=== PATIENT | female | born 1950 | race Caucasian/White ===

== ENCOUNTER 2017-11-18 12:34 | Outpatient (CLI) | payer MEDICARE, BC ==
[2017-11-18 15:45] LABS: Bilirubin Negative (Negative); Blood, Urine Negative (Negative); Clarity CLEAR (Clear); Glucose, Urine (Dipstick) >=1000 mg/dL (Negative); Leukocyte Negative (Negative); Nitrite Negative (Negative); Protein, Urine (Dipstick) Negative (Neg-Trace); Specific Gravity, Urine 1.022 (1.002-1.036); Urobilinogen 0.2 mg/dL (0.2-1.0)
[2017-11-18 15:51] LABS: Bacteria/HPF None Seen HPF (None Seen); Hyaline Casts/LPF 0-3 HYALINE CAST LPF (0-3 Hyaline); RBC/HPF 0-3 HPF (0-3); Squamous Epithelial None Seen HPF (0-3); WBC/HPF None Seen HPF (0-3)
== END 2017-11-18 12:35 | disposition home or self-care (01) ==
LOC: LABBT 12:34
PROVIDERS: ATTEND Orthopaedic Surgery
DX: Z01.818 Encounter for other preprocedural examination (principal); M17.12 Unilateral primary osteoarthritis, left knee
CPT/HCPCS: 81001; 87081; 93005; 93010

== ENCOUNTER 2017-11-25 13:54 | Outpatient (CLI) | payer MEDICARE, BC ==
[2017-11-25 14:19] LABS: #Eosinphils 0.2 thou/uL (0.0-0.7); #Lymphocytes 1.6 thou/uL (1.20-3.40); #Monocytes 0.5 thou/uL (0.11-0.59); #Neutrophils 5.4 thou/uL (1.40-6.50); %Basophils 0.6 % (0.0-1.0); %Eosinophils 2.9 % (0.0-10.0); %Lymphocytes 20.2 % (21.0-51.0); %Monocytes 6.8 % (0.0-10.0); %Neutrophils 69.5 % (42.0-75.0); Hemoglobin 14.4 g/dL (12.0-16.0); Mean Corpuscular HGB CONC 34.6 g/dL (32.0-36.0); Mean Corpuscular Hemoglobin 31.7 pg (27.0-31.0); Mean Corpuscular Volume 91.4 fL (78.0-98.0); Mean Platelet Volume 7.8 fL (7.4-10.4); Platelet Count 278 thou/uL (130-400); RBC Distribution Width 12.4 % (11.5-14.5); Red Blood Cell (RBC) Count 4.55 mill/uL (4.20-5.40); White Blood Cell (WBC) Count 7.7 thou/uL (4.8-10.8)
[2017-11-25 14:25] LABS: INR-International Normal Ratio 0.9; Prothrombin Time 12.4 SEC (12.0-14.7)
[2017-11-25 14:40] LABS: Anion Gap 14 mmol/L (10-20); BUN (Urea Nitrogen) 19 mg/dL (9.8-20.1); Calc. Creatinine Clearance 0 mL/min (70-130); Calcium 9.7 mg/dL (7.8-10.44); Carbon Dioxide 23 mmol/L (23-31); Chloride 104 mmol/L (98-107); Estimated GFR-MDRD 67; Glucose 161 mg/dL (80-115); Potassium 3.8 mmol/L (3.5-5.1); Sodium 137 mmol/L (136-145)
== END 2017-11-25 13:55 | disposition home or self-care (01) ==
LOC: LABBT 13:54
PROVIDERS: ATTEND Orthopaedic Surgery
DX: Z01.818 Encounter for other preprocedural examination (principal); M17.12 Unilateral primary osteoarthritis, left knee
CPT/HCPCS: 80048; 85025; 85610; 86850; 86900; 86901

== ENCOUNTER 2019-09-11 12:36 | Outpatient (CLI) | payer MEDICARE, BC ==
--- NOTE | 2019-09-11 14:07 | CT ---
RIGHT UPPER EXTREMITY CT SCAN WITHOUT IV CONTRAST: Date: 09/11/2019 HISTORY: Pain Dislocation FINDINGS: There is evidence for a large joint effusion and some fluid within the subacromial/subdeltoid bursa. There is an anterior subcoracoid dislocation with fairly extensive subchondral fractures of both the glenoid and humeral head with numerous displaced small bony fragments. There is severe muscle volume loss and fatty replacement of the supraspinatus muscle. AC joint arthrosis. IMPRESSION: 1. Anterior subcoracoid dislocation with some extensive subchondral fractures of both the humeral he ad and the glenoid, primarily inferiorly, resulting in the humeral head being essentially perched upo n the inferior glenoid. 2. Numerous displaced small fracture fragments resulting in numerous interarticular bodies. 3. Severe muscle volume loss of the supraspinatus muscle. 4. Fluid in the shoulder glenohumeral joint, as well as subacromial and subdeltoid bursal regions. POS: RRE
== END 2019-09-11 12:37 | disposition home or self-care (01) ==
LOC: SCSCT 12:36
PROVIDERS: ATTEND Orthopaedic Surgery
DX: S43.004A Unspecified dislocation of right shoulder joint, initial encounter (principal); M62.89 Other specified disorders of muscle

== ENCOUNTER 2019-09-19 06:39 | Outpatient (CLI) | payer MEDICARE, BC, OTHER ==
[2019-09-19 15:58] LABS: #Basophils 0.1 thou/uL (0.0-0.2); #Eosinphils 0.3 thou/uL (0.0-0.7); #Lymphocytes 1.7 thou/uL (1.20-3.40); #Monocytes 0.5 thou/uL (0.11-0.59); #Neutrophils 5.8 thou/uL (1.40-6.50); %Basophils 1.2 % (0.0-1.0); %Eosinophils 3.6 % (0.0-10.0); %Lymphocytes 19.7 % (21.0-51.0); %Monocytes 6.1 % (0.0-10.0); %Neutrophils 69.4 % (42.0-75.0); Hemoglobin 15.3 g/dL (12.0-16.0); Mean Corpuscular HGB CONC 33.2 g/dL (32.0-36.0); Mean Corpuscular Hemoglobin 30.8 pg (27.0-31.0); Mean Corpuscular Volume 92.8 fL (78.0-98.0); Mean Platelet Volume 9.3 fL (7.4-10.4); Platelet Count 285 thou/uL (130-400); RBC Distribution Width 12.3 % (11.5-14.5); Red Blood Cell (RBC) Count 4.95 mill/uL (4.20-5.40); White Blood Cell (WBC) Count 8.4 thou/uL (4.8-10.8)
[2019-09-19 16:03] LABS: INR-International Normal Ratio 0.9; Prothrombin Time 12.2 sec (12.0-14.7)
[2019-09-20 18:04] LABS: SARS-CoV-2 MS2 Positive; SARS-CoV-2 N Gene Negative; SARS-CoV-2 S Gene Negative; SARS-CoV-2 orf1ab Negative
== END 2019-09-19 06:40 | disposition home or self-care (01) ==
LOC: LABBT 06:39
PROVIDERS: ATTEND Orthopaedic Surgery
DX: Z01.818 Encounter for other preprocedural examination (principal); Z11.59 Encounter for screening for other viral diseases; S43.004A Unspecified dislocation of right shoulder joint, initial encounter
CPT/HCPCS: 85025; 85610; U0003; 87635

== ENCOUNTER 2019-09-19 13:30 | Inpatient (IN) | payer MEDICARE, BC, OTHER ==
[2019-09-18 11:44] VITALS: BMI 30.2
[2019-09-21] MEDS ORDERED: Midazolam HCl 2 mg/2 ml Vial ONE (06:32)
[2019-09-21] MEDS ORDERED: Fentanyl 100 MCG/2 ML VIAL ONE ×2 (06:32→09:44)
[2019-09-21] MEDS ORDERED: Tranexamic Acid 1,000 MG/10 ML VIAL ONE (06:39)
[2019-09-21] MEDS ORDERED: Sodium Chloride 0.9% 100 ML ONE (06:39)
[2019-09-21] MEDS ORDERED: Vancomycin 1.5 GRAM/300 ML BAG ONE (06:39)
[2019-09-21] MEDS ORDERED: HYDROcodone/Acetaminophen 7.5/325 mg Tablet PO PRN (06:56)
[2019-09-21] MEDS ORDERED: traMADol HCl 50 MG TAB PO PRN ×4 (06:56→07:43)
[2019-09-21] MEDS ORDERED: HYDROcodone/Acetaminophen 10/325 mg Tablet PO PRN ×2 (06:56)
[2019-09-21] MEDS ORDERED: PROPOFOL 20 ML ONE (07:00)
[2019-09-21] MEDS ORDERED: Dexamethasone 20 MG/5 ML VIAL ONE ×2 (07:00→11:06)
[2019-09-21] MEDS ORDERED: Rocuronium Bromide 50 MG/5 ML VIAL ONE (07:00)
[2019-09-21] MEDS ORDERED: Ondansetron PF 4 MG/2 ML Vial ONE ×2 (07:00→11:06)
[2019-09-21] MEDS ORDERED: Ketorolac Tromethamine 30 MG/ML VIAL ONE ×2 (07:00→11:06)
[2019-09-21] MEDS ORDERED: CEFAZOLIN 2 GM in Premix Bag 1 BAG IVPB SCH (07:00)
[2019-09-21] MEDS ORDERED: Promethazine HCl 25 MG/ML VIAL IM PRN (07:43)
[2019-09-21] MEDS ORDERED: Zolpidem Tartrate 5 MG TAB PO PRN (07:43)
[2019-09-21] MEDS ORDERED: Ondansetron PF 4 MG/2 ML Vial IVP PRN (07:43)
[2019-09-21] MEDS ORDERED: Ropivacaine 0.2% 550 ML 550 ML NERVE BLCK SCH (07:43)
[2019-09-21] MEDS ORDERED: HYDROcodone/Acetaminophen 5/325 mg Tablet PO PRN ×2 (07:43)
[2019-09-21] MEDS ORDERED: Fentanyl 100 MCG/2 ML VIAL SLOW IVP PRN (07:44)
[2019-09-21] MEDS ORDERED: Glycopyrrolate 0.2 MG/ML 5 ML SYRINGE ONE (11:06)
[2019-09-21] MEDS ORDERED: Ropivacaine 0.5% HCl/PF (150 MG/30 ML VIAL) ONE (11:06)
[2019-09-21] MEDS ORDERED: Ropivacaine 0.2% HCl/PF (40 MG/20 ML VIAL) ONE (11:06)
[2019-09-21] MEDS ORDERED: PROPOFOL 200 MG/20 ML VIAL ONE (11:06)
[2019-09-21] MEDS ORDERED: Rocuronium Bromide 10 MG/ML (10ML VIAL) ONE (11:06)
[2019-09-21] MEDS ORDERED: PHENYLEPHRINE-NS 100 MCG/ML 10 ML SYRINGE ONE (11:06)
[2019-09-21] MEDS ORDERED: EPHEDRINE 25 MG/5 ML SYRINGE ONE (11:06)
[2019-09-21] MEDS: metFORMIN XR 500 MG TAB PO SCH ×2 (11:08→17:11)
[2019-09-21] MEDS: Calcium Carbonate 600 MG + Vit D TAB PO SCH ×2 (11:08→20:41)
[2019-09-21] MEDS: Aspirin 81 mg Enteric Coated Tablet PO SCH ×2 (11:08→20:41)
[2019-09-21] MEDS: Carvedilol 25 MG TAB PO SCH ×2 (11:08→20:41)
[2019-09-21] MEDS: CEFAZOLIN 2 GM in Premix Bag 1 BAG IVPB SCH ×2 (14:32→22:09)
[2019-09-21] MEDS: Ketorolac Tromethamine 30 MG/ML VIAL IVP SCH ×2 (14:34→20:39)
[2019-09-21] MEDS: Amlodipine 5 MG TAB PO SCH (14:35)
[2019-09-21] MEDS: Losartan 25 MG TAB PO SCH (14:36)
[2019-09-21] MEDS: Hydrochlorothiazide 25 MG TAB PO SCH (14:36)
[2019-09-21] MEDS: Empagliflozin 10 MG TAB PO SCH (17:06)
[2019-09-21] MEDS ORDERED: Atorvastatin Calcium 10 MG TAB PO SCH (21:00)
[2019-09-22] MEDS: Ketorolac Tromethamine 30 MG/ML VIAL IVP SCH ×2 (01:46→09:48)
[2019-09-22] MEDS: metFORMIN XR 500 MG TAB PO SCH (09:44)
[2019-09-22] MEDS: Amlodipine 5 MG TAB PO SCH (09:44)
[2019-09-22] MEDS: Carvedilol 25 MG TAB PO SCH (09:44)
[2019-09-22] MEDS: Losartan 25 MG TAB PO SCH (09:45)
[2019-09-22] MEDS: Hydrochlorothiazide 25 MG TAB PO SCH (09:45)
[2019-09-22] MEDS: Calcium Carbonate 600 MG + Vit D TAB PO SCH (09:45)
[2019-09-22] MEDS: Empagliflozin 10 MG TAB PO SCH (09:48)
[2019-09-22] MEDS: Aspirin 81 mg Enteric Coated Tablet PO SCH (09:50)
[2019-09-22 11:47] VITALS: BP 119/76; TEMP 98.6
--- NOTE | 2019-09-25 13:16 | DIS ---
DATE OF ADMISSION: 09/21/2019 DATE OF DISCHARGE: 09/22/2019 ADMISSION DIAGNOSIS: End-stage bicompartmental osteoarthritis, right shoulder, with rotator cuff insufficiency. DISCHARGE DIAGNOSIS: End-stage bicompartmental osteoarthritis, right shoulder, with rotator cuff insufficiency. OPERATIVE PROCEDURE: Right reverse total shoulder arthroplasty. CONSULTANTS: OBDULIA Anesthesia. BRIEF CLINICAL HISTORY: Monique is a 69-year-old female, admitted to [facility], underwent the above-elective procedure on date of admission without intra, karrie, or postoperative complication. Her hospital course was unremarkable. At the time of discharge, the patient is afebrile, she is ambulatory without assistance, tolerating regular diet, voiding without difficulty. Her incision is clean and closed. She is neurovascularly intact in the right upper extremity. DISCHARGE MEDICATIONS: Please see medication reconciliation form. We will be happy to see the patient on an as-needed basis between now and her next scheduled appointment. CONDITION ON DISCHARGE: Stable. PROGNOSIS: Good. Job ID: [id number]
--- NOTE | 2019-09-27 12:44 | OP ---
DATE OF PROCEDURE: 09/21/2019 DIAGNOSIS: Right proximal humerus fracture with necrosis. PROCEDURE PERFORMED: Right reverse total shoulder arthroplasty using a [employer] reverse total shoulder implant with a Flex stem, 6 mm polyethylene, and a standard Glenosphere and base plate ASSISTANT PROJECT MANAGER: Cristian Alfaro PA-C BLOOD LOSS: 100. SPECIMEN: None. DRAINS: None. COMPLICATION: None. DESCRIPTION OF PROCEDURE: After appropriate consent was obtained, the patient was taken to the operating room, where general anesthetic was induced. She received preoperative antibiotics according to SCIP protocol, placed in a beach chair position. The deltopectoral approach was made. Dissection was carried down to the subscapularis tendon, which was tagged for later repair. There was no functioning rotator cuff. The humeral head was dislocated and cut using a cutting guide, prepared to appropriate stem size. A metaphyseal protector was applied. The glenoid was then exposed circumferentially, removed remains of the biceps tendon. The labrum tissue identified in the center of the glenoid. I drilled the center sdv pilot/navigator/dds operator hole and then reamed the glenoid to a flat surface, using a one-step reamer to create a trough for the Glenosphere. Appropriate base plate was then inserted with a good press-fit technique and screws were inserted with excellent security of the base plate to bone. When it appears deployed the screw was tightened without difficulty. Trials were performed. The appropriate metaphysis and polyethylene liner chosen. Shoulder was reduced, we confirmed stability. Trials removed, irrigation performed. I drilled two holes through the metaphysis of the proximal humerus, placed cottony Dacron through these holes. The suture went around the actual implant to give extra stability. Implant was impacted into place. Shoulder was reduced. Subscapularis was repaired back to bone using 1 mm cottony Dacron tape. Irrigation was performed. Deltopectoral interval was closed with 0 Vicryl, subcu 2-0 Vicryl and skin was closed with bartolo. Sterile dressings applied. Job ID: [id number]
== END 2019-09-22 14:20 | disposition home or self-care (01) | DRG 483 ==
LOC: SJJU 09-21 05:53 → SURG A 09-21 10:41
PROVIDERS: ADMIT Orthopaedic Surgery; ATTEND Orthopaedic Surgery
PROC: 0RRJ00Z Replacement of Right Shoulder Joint with Reverse Ball and Socket Synthetic Substitute, Open Approach (ICD-10-PCS; principal; 2019-09-21)
DX: S42.201A Unspecified fracture of upper end of right humerus, initial encounter for closed fracture (principal); M87.811 Other osteonecrosis, right shoulder; E11.9 Type 2 diabetes mellitus without complications; E78.5 Hyperlipidemia, unspecified; I10 Essential (primary) hypertension; W18.30XA Fall on same level, unspecified, initial encounter; Z79.899 Other long term (current) drug therapy; Z79.82 Long term (current) use of aspirin; Z79.84 Long term (current) use of oral hypoglycemic drugs; Z01.818 Encounter for other preprocedural examination; Z11.59 Encounter for screening for other viral diseases; M19.011 Primary osteoarthritis, right shoulder; X58.XXXA Exposure to other specified factors, initial encounter
CPT/HCPCS: 85025; 85610; 87635; 93005; 93010; A4306; J0690; J1100; J1885; J2250; J2405; J2704; J2795; J3010; J3370; J3490; U0003